=== PATIENT | female | born 1990 | race Caucasian/White ===

== ENCOUNTER 2017-01-25 14:34 | Outpatient (CLI) | payer SELFPAY ==
[2017-01-25] MEDS ORDERED: LACTATED RINGERS 500 ML IV ONE (16:08)
[2017-01-25 17:06] LABS: Urine Drugs of Abuse Note Disclamer
[2017-01-25 17:36] LABS: Alanine Aminotransferase 6 units/L (7-56); Albumin 3.2 g/dL (3.9-5); Alkaline Phosphatase 94 units/L (35-129); Anion Gap 17 mmol/L; Blood Urea Nitrogen 8 mg/dL (7-17); Calcium 8.5 mg/dL (8.4-10.2); Carbon Dioxide 20 mmol/L (22-30); Chloride 102.5 mmol/L (98-107); Glucose 128 mg/dL (65-100); Potassium 3.7 mmol/L (3.6-5.0); Sodium 136 mmol/L (137-145); Total Protein 6.4 g/dL (6.3-8.2)
[2017-01-25 17:46] LABS: Basophils % (Auto) 0.1 % (0.0-1.8); Hematocrit 30.5 % (30.3-42.9); Hemoglobin 10.3 gm/dl (10.1-14.3); Mean Corpuscular HGB Conc 34 % (30-34); Mean Corpuscular Hemoglobin 28 pg (28-32); Mean Corpuscular Volume 85 fl (79-97); Platelet Count 176 K/mm3 (140-440); Red Blood Count 3.61 M/mm3 (3.65-5.03); White Blood Count 10.8 K/mm3 (4.5-11.0)
[2017-01-25 17:57] LABS: Bacteria,Urine 3+ /HPF (Negative); Bilirubin,Urine NEG (Negative); Blood,Urine MOD (Negative); Ketones,Urine NEG (Negative); Leukocyte Esterase,Urine MOD (Negative); Mucus,Urine 3+ /HPF; Nitrite,Urine NEG (Negative); Urobilinogen,Urine < 2.0 mg/dL (<2.0)
[2017-01-25 18:17] VITALS: BP 103/51
== END 2017-01-25 18:20 | disposition home or self-care (01) ==
LOC: TRG 14:34
PROVIDERS: ATTEND Obstetrics & Gynecology
DX: O47.03 False labor before 37 completed weeks of gestation, third trimester (principal); Z3A.31 31 weeks gestation of pregnancy
CPT/HCPCS: 36415; 59025; 80053; 80307; 81001; 82962; 85025; 96360; J7120

== ENCOUNTER 2017-03-31 16:38 | Emergency (ER) | payer SELFPAY ==
[2017-03-31 18:10] LABS: Bilirubin,Urine Negative (Negative); Blood,Urine Large (Negative); Ketones,Urine Negative (Negative)
[2017-03-31 18:11] LABS: Leukocyte Esterase,Urine Negative (Negative); Nitrite,Urine Negative (Negative); Protein,Urine <15 mg/dL mg/dL (Negative); Urobilinogen,Urine < 2.0 mg/dL (<2.0)
[2017-03-31 18:21] LABS: Basophils % (Auto) 0.3 % (0.0-1.8); Eosinophils % (Auto) 2.8 % (0.0-4.3); Hematocrit 33.3 % (30.3-42.9); Hemoglobin 10.6 gm/dl (10.1-14.3); Mean Corpuscular HGB Conc 32 % (30-34); Mean Corpuscular Hemoglobin 26 pg (28-32); Mean Corpuscular Volume 82 fl (79-97); Platelet Count 334 K/mm3 (140-440); Red Blood Count 4.06 M/mm3 (3.65-5.03); Red Cell Distribution Width 15.4 % (13.2-15.2); White Blood Count 13.6 K/mm3 (4.5-11.0)
[2017-03-31 18:51] LABS: Alanine Aminotransferase 8 units/L (7-56); Albumin 3.8 g/dL (3.9-5); Albumin/Globulin Ratio 1.1 %; Alkaline Phosphatase 115 units/L (35-129); Anion Gap 19 mmol/L; BUN/Creatinine Ratio 15.71; Blood Urea Nitrogen 11 mg/dL (7-17); Calcium 8.7 mg/dL (8.4-10.2); Carbon Dioxide 25 mmol/L (22-30); Chloride 98.3 mmol/L (98-107); Glucose 83 mg/dL (65-100); Lipase 32 units/L (13-60); Potassium 4.2 mmol/L (3.6-5.0); Sodium 138 mmol/L (137-145); Total Protein 7.3 g/dL (6.3-8.2)
--- NOTE | 2017-03-31 23:45 | Emergency Department Report ---
ED Abdominal Pain HPI - General Chief Complaint: Abdominal Pain Stated Complaint: ABD PAIN Time Seen by Provider: 03/31/17 23:38 Source: patient Mode of arrival: Ambulatory Limitations: No Limitations - History of Present Illness Initial Comments: 27 years old female delivered by 2 weeks ago She Did Complain of Abdominal Pain Diffuse Denied Any Abnormal Discharge No Fever No Nausea No Vomiting MD Complaint: abdominal pain Severity scale (0 -10): 5 - Related Data Home Medications Medication Instructions Recorded Confirmed Last Taken Ibuprofen [Motrin] 600 mg PO Q8H PRN 03/31/17 03/31/17 Unknown Iron 18 mg PO QDAY 03/31/17 03/31/17 Unknown oxyCODONE /ACETAMINOPHEN [Percocet 1 tab PO Q6HR PRN 03/31/17 03/31/17 Unknown 5/325] Previous Rx's Medication Instructions Recorded Last Taken Type Cephalexin [Keflex] 500 mg PO Q6HR #28 capsule 04/01/17 Unknown Rx Ondansetron [Zofran Odt] 4 mg PO Q8HR PRN #14 tab.rapdis 04/01/17 Unknown Rx oxyCODONE /ACETAMINOPHEN [Percocet 1 tab PO Q6HR PRN #10 tablet 04/01/17 Unknown Rx 5/325] Allergies Allergy/AdvReac Type Severity Reaction Status Date / Time No Known Allergies Allergy Verified 03/31/17 17:03 ED Review of Systems ROS: Stated complaint: ABD PAIN Other details as noted in HPI Comment: All other systems reviewed and negative Constitutional: denies: chills, fever Respiratory: denies: cough, shortness of breath Cardiovascular: denies: chest pain, palpitations Gastrointestinal: abdominal pain. denies: nausea, vomiting, diarrhea, melena Genitourinary: denies: urgency, dysuria, frequency Neurological: denies: headache, weakness, numbness ED Past Medical Hx - Past Medical History Hx Hypertension: No Hx Diabetes: Yes (WITH -DIET CONTROLLED) Hx Deep Vein Thrombosis: No Hx Renal Disease: No Hx Sickle Cell Disease: No Hx Seizures: No Hx Asthma: No Hx HIV: No - Surgical History Additional Surgical History: - Social History Smoking Status: Never Smoker Substance Use Type: Prescribed - Medications Home Medications: Home Medications Medication Instructions Recorded Confirmed Last Taken Type Ibuprofen [Motrin] 600 mg PO Q8H PRN 03/31/17 03/31/17 Unknown History Iron 18 mg PO QDAY 03/31/17 03/31/17 Unknown History oxyCODONE /ACETAMINOPHEN [Percocet 1 tab PO Q6HR PRN 03/31/17 03/31/17 Unknown History 5/325] Cephalexin [Keflex] 500 mg PO Q6HR #28 capsule 04/01/17 Unknown Rx Ondansetron [Zofran Odt] 4 mg PO Q8HR PRN #14 tab.rapdis 04/01/17 Unknown Rx oxyCODONE /ACETAMINOPHEN [Percocet 1 tab PO Q6HR PRN #10 tablet 04/01/17 Unknown Rx 5/325] ED Physical Exam - General Limitations: No Limitations General appearance: alert, in no apparent distress - Head Head exam: Present: normocephalic - ENT ENT exam: Present: normal exam - Neck Neck exam: Present: normal inspection - Respiratory Respiratory exam: Present: normal lung sounds bilaterally, chest wall tenderness. Absent: wheezes, rales - Cardiovascular Cardiovascular Exam: Present: regular rate, normal rhythm, normal heart sounds - GI/Abdominal GI/Abdominal exam: Present: soft, tenderness (LOWER abdomen), other (WOUND WITH MILD GREENISH DISCHARGE.). Absent: distended, guarding, rebound, rigid, normal bowel sounds, mass, bruit, pulsatile mass, hernia - Back Exam Back exam: Present: normal inspection. Absent: tenderness, CVA tenderness (R), CVA tenderness (L) - Neurological Exam Neurological exam: Present: alert, oriented X3, CN II-XII intact - Skin Skin exam: Present: warm, normal color ED Course Vital Signs 03/31/17 03/31/17 03/31/17 17:07 23:36 23:37 Temperature 98.8 F 98.7 F Pulse Rate 80 83 Respiratory 17 20 20 Rate Blood Pressure 117/79 Blood Pressure 111/68 [Right] O2 Sat by Pulse 100 99 100 Oximetry - Reevaluation(s) Reevaluation #1: 04/01/17 01:53 Patient stated that she is feeling better I informed the patient about her blood work and her ultrasound and the need to follow up with her OB doctor in the next 2-3 days. I'll prescribe antibiotic and pain medicine. ED Medical Decision Making - Lab Data Result diagrams: 03/31/17 17:53 03/31/17 17:53 Critical care attestation.: If time is entered above; I have spent that time in minutes in the direct care of this critically ill patient, excluding procedure time. ED Disposition Clinical Impression: Abdominal pain Disposition: - TO HOME OR SELFCARE Is pt being admited?: No Condition: Stable Instructions: Abdominal Pain (ED) Referrals: RONY LINDQUIST [Other] - 3-5 Days
[2017-04-01] MEDS ORDERED: ZOSYN/NS 3.375GM/50ML 3.375 GM/50 ML BAG IV SCH
--- NOTE | 2017-04-01 00:58 | Ultrasound Report ---
FINAL REPORT PROCEDURE: US PELVIC COMPLETE TRANS ABDOMINAL AND TRANSVAGINAL TECHNIQUE: Real-time transabdominal sonography in multiple planes of the pelvis was performed. The pelvic structures, especially the ovaries were not optimally visualized. Transvaginal sonography was then performed to better evaluate the structures and/or abnormalities described below with image documentation. CPT 59956 and 32664 HISTORY: Abdominal pain after 2 weeks ago. COMPARISON: No prior studies are available for comparison. FINDINGS: UTERUS Size: 11.7 x 4.8 x 6.6 centimeters. Endometrial thickness: 14.7 millimeters. Orientation: anteverted. Cervix: Normal. Fibroids/masses: Cystic structure in the lower uterine segment measuring 1.9 centimeters. RIGHT Ovary: 2.3 x 1.5 x 1.4 centimeters. Appearance: Normal flow. LEFT Ovary: Not seen. Pelvic fluid: None. Other: None. IMPRESSION: Endometrium slightly thickened, but probably within normal limits considering history of recent . No sonographic evidence of retained products of conception. Cystic structure in the lower uterine segment, may represent process such as nabothian cyst or cystic uterine fibroid. Consider further evaluation including followup examination if there is clinical concern for collection such as small seroma or hematoma (felt to be less likely).
--- NOTE | 2017-04-01 00:59 | Ultrasound Report ---
FINAL REPORT PROCEDURE: US PELVIC COMPLETE TRANS ABDOMINAL AND TRANSVAGINAL TECHNIQUE: Real-time transabdominal sonography in multiple planes of the pelvis was performed. The pelvic structures, especially the ovaries were not optimally visualized. Transvaginal sonography was then performed to better evaluate the structures and/or abnormalities described below with image documentation. CPT 22212 and 64397 HISTORY: Abdominal pain after 2 weeks ago. COMPARISON: No prior studies are available for comparison. FINDINGS: UTERUS Size: 11.7 x 4.8 x 6.6 centimeters. Endometrial thickness: 14.7 millimeters. Orientation: anteverted. Cervix: Normal. Fibroids/masses: Cystic structure in the lower uterine segment measuring 1.9 centimeters. RIGHT Ovary: 2.3 x 1.5 x 1.4 centimeters. Appearance: Normal flow. LEFT Ovary: Not seen. Pelvic fluid: None. Other: None. IMPRESSION: Endometrium slightly thickened, but probably within normal limits considering history of recent . No sonographic evidence of retained products of conception. Cystic structure in the lower uterine segment, may represent process such as nabothian cyst or cystic uterine fibroid. Consider further evaluation including followup examination if there is clinical concern for collection such as small seroma or hematoma (felt to be less likely).
[2017-04-01 02:24] VITALS: BP 115/70
== END 2017-04-01 02:25 | disposition home or self-care (01) ==
LOC: ED 16:38
DX: R10.84 Generalized abdominal pain (principal)
CPT/HCPCS: 36415; 76830; 76856; 80053; 81001; 81025; 83690; 85025; 87040; 96365; 99284; J2543